=== PATIENT | female | born 1995 | race Caucasian/White ===

== ENCOUNTER 2017-01-13 10:36 | Emergency (ER) | payer BC, OTHER ==
[~2017-01-13] VITALS: Ht 154.9 cm; Wt 67.6 kg
[~2017-01-13 10:36] MED LIST: NORCO 5-325 TA1 EACH PO; PHENERGAN 25 MG25 M1 PO
[2017-01-13] MEDS ORDERED: CLARITIN10 M2 PO (10:47)
[2017-01-13] MEDS ORDERED: LOESTRIN1 EAC1 PO (10:48)
[2017-01-13] MEDS ORDERED: ARNUITY ELLIP100 MCG (10:48)
[2017-01-13] MEDS ORDERED: ALBUTEROL2.5 MG/0.1 INH (10:49)
[2017-01-13] MEDS ORDERED: FLONASE 0.05%50 MCG NASAL (11:59)
[2017-01-13 12:30] VITALS: BP 120/76
== END 2017-01-13 12:40 | disposition home or self-care (01) ==
LOC: ER 10:36
DX: G43.909 Migraine, unspecified, not intractable, without status migrainosus (principal); H69.81 Other specified disorders of Eustachian tube, right ear; F10.99 Alcohol use, unspecified with unspecified alcohol-induced disorder; Z88.1 Allergy status to other antibiotic agents; Z88.0 Allergy status to penicillin